=== PATIENT | female | born 1950 | race Caucasian/White ===

== ENCOUNTER 2016-12-08 18:02 | Emergency (ER) | payer OTHER ==
[2016-12-08 18:07] VITALS: TEMP 36.7
[2016-12-08] MEDS ORDERED: TRAMADOL HCL 50 MG TAB PO STA (18:25)
[2016-12-08] MEDS ORDERED: XYLOCAINE 1%/SOD BICARB 20 ML VIAL INFIL ONE (18:30)
[2016-12-08] MEDS ORDERED: DIPHTHERIA/TETANUS/PERTUSSIS 0.5 ML SYR/VIAL IM. ONE (18:30)
[2016-12-08] MEDS ORDERED: TRAM-10 PO (19:03)
--- NOTE | 2016-12-08 19:11 | EMERGENCY ROOM VISIT NOTE ---
ED Visit Note First contact with patient: 18:19 I have seen and examined this patient with Stephon Arvizu and generally agree with the treatment plan as discussed. Current/Historical Medications Scheduled PRN Tramadol (Ultram), 1 TAB PO Q4H PRN for Pain Allergies Coded Allergies: No Known Allergies (Unverified , 12/08/16) Vital Signs Date Time Temp Pulse Resp B/P Pulse Ox O2 Delivery O2 Flow Rate FiO2 12/08/16 18:07 36.7 92 20 131/84 94 Room Air Medications Administered Medications (Trade) Dose Ordered Sig/Clyde Route Start Time Stop Time Status Last Admin Dose Admin Tramadol HCl (Ultram Tab) 50 mg ONE STAT PO 12/08/16 18:25 12/08/16 18:26 DC 12/08/16 18:33 50 MG Lidocaine HCl (Buffered Lidocaine 1% Inj) 20 ml ONE ONCE INFIL 12/08/16 18:30 12/08/16 18:31 DC 12/08/16 18:32 20 ML Diphtheria/ Pertussis/Tetanus Vacc (Adacel Inj) 0.5 ml ONCE ONCE IM. 12/08/16 18:30 12/08/16 18:31 DC 12/08/16 18:34 0.5 ML Departure Information Impression Primary Impression: Laceration of right wrist with complication Dispostion Home / Self-Care Prescriptions Tramadol (Ultram) 50 Mg Tab 1 TAB PO Q4H Y for Pain, #20 TAB For Initial Treatment Prov: Stephon Arvizu PA 12/08/16 Forms HOME CARE DOCUMENTATION FORM, IMPORTANT VISIT INFORMATION Patient Instructions [facility] Additional Instructions Keep wound clean and dry. Do not allow any crusting or dried blood to accumulate on sutures. If this occurs, use a 1:1 solution of hydrogen peroxide/ water on a Q-tip to clean the wound. Use an antibiotic ointment for 3-4 days, then let wound dry. Suture removal in 12-14 days. Return sooner for any signs of infection (increasing redness, swelling, drainage). Ice and elevate as needed and for swelling and pain. Ibuprofen and/or Tylenol every 6 hours to minimize pain. Ultram if needed for worse pain.
[2016-12-08] MEDS ORDERED: ZNTT/150 PO (19:14)
[2016-12-08] MEDS ORDERED: ASPI81TA28 PO (19:14)
[2016-12-08] MEDS ORDERED: TRAMADOL HCL 50 MG HOME PACK PO ONE (19:15)
[2016-12-08 19:21] VITALS: BP 120/78; PULSE 86; O2SAT 93
--- NOTE | 2016-12-08 21:13 | EMERGENCY ROOM VISIT NOTE ---
History First contact with patient: 18:19 Chief Complaint: LACERATION/CUT (NON-SUTURE) Stated Complaint: CUT ON RT WRIST WON'T STOP BLEEDING Nursing Triage Summary: patient presents with c/o laceration to right posterior lateral wrist states she was washing dishes and a crock pot broke History of Present Illness The patient is a 66 year old female who presents to the Emergency Room with complaints of a laceration to her right wrist. She reports that she was washing a crock pot when he dropped and broke on the edge of her sink. It then bounced up and cut her wrist. The patient reports significant bleeding from the wound. She denies any paresthesias or numbness of the hand or fingers. The patient is uncertain of her last tetanus immunization, and rates her discomfort an 8 out of 10. Review of Systems 10 system review was performed and was negative except for pertinent positives and negatives as indicated in history of present illness Past Medical/Surgical History Medical Problems: (1) COPD (chronic obstructive pulmonary disease) Surgical Problems: (1) History of partial hysterectomy Family History FH: lung cancer FH: prostate cancer Social History Smoking Status: Current Every Day Smoker Alcohol Use: none Marital Status: Occupation Status: retired Current/Historical Medications Scheduled Aspirin (Aspirin Ec), 81 MG PO DAILY Ranitidine (Zantac), 150 MG PO DAILY Scheduled PRN Tramadol (Ultram), 1 TAB PO Q4H PRN for Pain Allergies Coded Allergies: No Known Allergies (Unverified , 12/08/16) Physical Exam Vital Signs Date Time Temp Pulse Resp B/P Pulse Ox O2 Delivery O2 Flow Rate FiO2 12/08/16 19:21 86 18 120/78 93 12/08/16 18:07 36.7 92 20 131/84 94 Room Air Pain Rating (0-10): 8.0 Physical Exam CONSTITUTIONAL: Healthy and well nourished. Alert and oriented X 3 with positive affect. Patient appears somewhat anxious. HEENT: Normocephalic, atraumatic. Pupils equal, round and reactive. NECK: Full active range of motion without discomfort. MUSCULOSKELETAL: Examination shows a 1 cm laceration of the volar radial aspect of the wrist. On my initial exam, the dressing was removed to show mild venous bleeding. A pressure dressing was reapplied until suture repair could be performed. The patient is able to flex and extend the fingers. Capillary refill of the fingers is less than 2 seconds. INTEGUMENTARY: No rash or other significant dermatologic conditions noted. NEUROLOGIC: Right hand and fingers are sensory intact. Medical Decision & Procedures Medications Administered Medications (Trade) Dose Ordered Sig/Clyde Route Start Time Stop Time Status Last Admin Dose Admin Tramadol HCl (Ultram Tab) 50 mg ONE STAT PO 12/08/16 18:25 12/08/16 18:26 DC 12/08/16 18:33 50 MG Lidocaine HCl (Buffered Lidocaine 1% Inj) 20 ml ONE ONCE INFIL 12/08/16 18:30 12/08/16 18:31 DC 12/08/16 18:32 20 ML Diphtheria/ Pertussis/Tetanus Vacc (Adacel Inj) 0.5 ml ONCE ONCE IM. 12/08/16 18:30 12/08/16 18:31 DC 12/08/16 18:34 0.5 ML Tramadol HCl (Ultram Home Pack) 1 homepack UD ONCE PO 12/08/16 19:15 12/08/16 19:16 DC 12/08/16 19:20 1 HOMEPACK Procedure Wound evaluation and laceration repair was performed under local anesthesia after receiving verbal consent from the patient. Using buffered 1% lidocaine without epinephrine, good local anesthesia was administered. It is noted that the patient had no active bleeding when the pressure dressing was removed. After performing local anesthesia, she had an active superficial arterial bleed. Using a 6-0 Vicryl suture, the bleeder was ligated with good hemostasis. The wound was then further irrigated and probed to show no underlying foreign debris. Sterile for was created, and the wound was then approximated using 4-0 nylon simple interrupted sutures. No additional hematoma formation or other wound concerns were noted prior to discharge. The patient tolerated the procedure well. ED Course Patient history and physical exam were performed. Nurse's notes were reviewed. The patient was administered Adacel IM. Laceration repair and superficial arterial ligation was performed because of active bleeding. The patient had excellent hemostasis prior to discharge. The patient was provided additional verbal and written wound care instructions. Ice for swelling. Ibuprofen or Tylenol as needed for pain. Suture removal in 12-14 days, or seek reevaluation sooner for any signs of wound infection. The patient was happy with plan of care, and voiced understanding of all discharge instructions. The patient was also seen and examined by Dr. Walls, ED attending physician, who agrees with workup and plan of care. Impression Primary Impression: Laceration of right wrist with complication Departure Information Dispostion Home / Self-Care Condition GOOD Prescriptions Tramadol (Ultram) 50 Mg Tab 1 TAB PO Q4H Y for Pain, #20 TAB For Initial Treatment Prov: Stephon Arvizu PA 12/08/16 Forms HOME CARE DOCUMENTATION FORM, IMPORTANT VISIT INFORMATION Patient Instructions [facility] Additional Instructions Keep wound clean and dry. Do not allow any crusting or dried blood to accumulate on sutures. If this occurs, use a 1:1 solution of hydrogen peroxide/ water on a Q-tip to clean the wound. Use an antibiotic ointment for 3-4 days, then let wound dry. Suture removal in 12-14 days. Return sooner for any signs of infection (increasing redness, swelling, drainage). Ice and elevate as needed and for swelling and pain. Ibuprofen and/or Tylenol every 6 hours to minimize pain. Ultram if needed for worse pain. Problem Qualifiers Primary Impression: Laceration of right wrist with complication Encounter type: initial encounter Qualified Codes: S61.511A - Laceration without foreign body of right wrist, initial encounter
== END 2016-12-08 19:23 | disposition home or self-care (01) ==
LOC: C.EDB 18:03 → C.EDD 19:23
DX: S61.511A Laceration without foreign body of right wrist, initial encounter (principal); W25.XXXA Contact with sharp glass, initial encounter; J44.9 Chronic obstructive pulmonary disease, unspecified; F17.200 Nicotine dependence, unspecified, uncomplicated; Z79.82 Long term (current) use of aspirin; Z23 Encounter for immunization